=== PATIENT | female | born 1980 | race Caucasian/White ===

== ENCOUNTER → 2016-08-28 | Outpatient (CLI) | payer OTHER ==
[2016-08-28 12:39] VITALS: BP 132/83
== END ==
LOC: MHUC 12:25
PROVIDERS: ATTEND Physician Assistant
DX: J40 Bronchitis, not specified as acute or chronic (principal)
CPT/HCPCS: 99213

== ENCOUNTER 2016-11-07 16:14 | Emergency (ER) | payer OTHER ==
[~2016-11-07] VITALS: Ht 167.6 cm; Wt 92.5 kg
[~2016-11-07 16:14] MED LIST changes: -TBR.3OP51 OS
[2016-11-07] MEDS ORDERED: FLUORESCEIN (FLUOR-I-STRIPS) 1 MG STRIP OS ONE (16:55)
[2016-11-07] MEDS ORDERED: TETRACAINE 0.5% OPHTHALMIC SOLUTION 4 ML BTL OS ONE (16:55)
--- NOTE | 2016-11-07 16:58 | NUR ---
DR WINCHESTER UNABLE TO SEE PT AT THIS TIME D/T PT DOING UDS FOR WORK COMP
[2016-11-07] MEDS ORDERED: TBR.3OP51 OS (17:51)
[2016-11-07 18:11] VITALS: BP 144/87
== END 2016-11-07 18:11 | disposition home or self-care (01) ==
LOC: ED 16:17
DX: Z04.2 Encounter for examination and observation following work accident (principal); X58.XXXA Exposure to other specified factors, initial encounter; Y92.89 Other specified places as the place of occurrence of the external cause; Y99.0 Civilian activity done for income or pay
CPT/HCPCS: 99283

== ENCOUNTER → 2016-11-07 | Outpatient (REF) ==
[~2016-11-07] MED LIST: AC500T PO; ALBU8.5H2 IH; ASPI1TAB59 PO; AZIT250T81 PO; BENZ-13 PO; CODE118S2 PO; CYCL-265; CYCL10TA45 PO; DOXY100C42 PO; HYDR-2013 PO; HYDR-3702 PO; IBUP-15 PO; IBUP-793 PO; LEVO500T16 PO; NAPR-832 PO; NAPR500T8 PO; ONDA4TAB41 PO; ONDAN4ODT PO; PRD50T PO; PRED10TA PO; PRED20TA PO; PRED50TA PO; PROM25TA5 PO; TBR.3OP51 OS; TRAM-25 PO; TRAM100T28 PO; TRM50T PO
== END ==
LOC: EUOP 16:19
PROVIDERS: ATTEND Emergency Medicine
DX: Z02.89 Encounter for other administrative examinations (principal); Z02.83 Encounter for blood-alcohol and blood-drug test

== ENCOUNTER → 2016-11-07 | Outpatient (CLI) | payer OTHER ==
--- NOTE | 2016-11-07 16:15 | Urgent Care T Sheet Gen (E) ---
Intake History of Present Illness Initial Comments Presents with L eye pain, foreign body sensation and light sensitivity. Patient got cleaning solution in her eye approx 2 hours ago. Tried flushing it out with cold water but is still complaining of pain. Allergies: Coded Allergies: Metaxalone (Verified Allergy, 02/15/12) Sulfa (Sulfonamide Antibiotics) (Verified Allergy, 02/15/12) Uncoded Allergies: UNKNOWN PRESCRIBED ANTI-INFLAMMATOR (Allergy, "Under the skin rash", ) Home Meds Active Scripts Albuterol Sulfate (Proair HFA)8.5 Gm Hfa.aer.ad2 Puff IH QID PRN SHORTNESS OF BREATH #1 INHALER Prov:ADALGISA MAJANO 08/28/16 Prednisone 20 Mg Xijxpt50 Mg PO DAILY #10 TAB Take 40mg po x 3 days then take 20mg po x 4 days Prov:ADALGISA MAJANO 08/28/16 Azithromycin (Zithromax Z-Kirit)6 Tab/Pkt [id number] Mg PO SEE INSTRUCTIONS #6 TAB Ref 0 Day One: Take 2 tablets by mouth Days Two-Five: Take 1 tablet by mouth Prov:ADALGISA MAJANO 08/28/16 Prednisone 10 Mg Cmfymw52 Mg PO DAILY Inflammation #12 TAB Ref 0 Take 3 tablets once daily x 2 days 2 tablets once daily x 2 days 1 tablet once daily x 2 days Prov:NAT MILLER 06/23/16 Azithromycin (Zithromax Z-Kirit)6 Tab/Pkt [id number] Mg PO SEE INSTRUCTIONS Infection #6 PKT Ref 0 Day One: Take 2 tablets by mouth Days Two-Five: Take 1 tablet by mouth Prov:NAT MILLER 06/23/16 Tramadol HCl 50 Mg Tablet1-2 Tab PO Q6H PRN PAIN #20 TAB Ref 0 Prov:KAREN COBIAN MD 06/20/16 Ondansetron HCl (Zofran)4 Mg Tablet4 Mg PO QID PRN NAUSEA/VOMITING #15 TAB Ref 0 Prov:ADALGISA MAJANO 04/30/16 Reported Medications Aspirin/Acetaminophen/Caffeine (Migraine Relief Caplet)1 Each Tablet1 Each PO NEEDED 04/15/16 Naproxen Sodium (Midol)220 Mg Mddlht220 Mg PO NEEDED 04/15/16 Acetaminophen (Tylenol Tab)500 Mg Tab2 Tab PO PRN 03/09/13 Ibuprofen (Motrin IB)200 Mg Tablet2-3 Tab PO PRN 03/09/13 Respiratory Constitutional Symptoms: No syptoms reported All Other Systems Reviewed Remaining Systems: All other systems reviewed with negative findings Past Jxowdaq-Gbngox-Ygrprj Hx Patient's Social History Alcohol Use: Denies Use Smoking Status: Former smoker Recent foreign travel: No Surgeries/Hospitalizations Hospitalization/Surgery Hx: hysterectomy, tubal ligation, laminectomy, micro discectomy, gall bladder- Respiratory Respiratory History: Asthma, Chronic Bronchitis Cardiovascular Cardiovascular History: None Neuro/Muscular Comment: Relates Rt leg numb/tingling to Rt hip problem. Reproductive System Sexually Transmitted Diseases: Yes (Herpes) Gastrointestinal GI/Endocrine History: Heartburn, Diarrhea Comment: Bowels not routinely normal since [place] Diabetes Diabetes: No HEENT Impaired Vision: None Hearing Impaired: None Psychosocial Behavior Disorders: Anxiety, Depression Physical Exam Physical Exam General Appearance: WD/WN Departure Urgent Care Impression Impression: Primary Impression: Left eye pain Departure Departed Disposition: To [facility] ED Condition: Stable Referrals: WILLIAM MONTANA MD (PCP) Additional Instructions: I have sent the patient to the ER for appropriate management Patient is arriving via private vehicle. End of report . ADALGISA MAJANO Nov 07, 2016 16:14
== END ==
LOC: MHUC 15:57
PROVIDERS: ATTEND Physician Assistant
DX: H57.12 Ocular pain, left eye (principal)

== ENCOUNTER 2016-11-22 19:45 | Emergency (ER) | payer OTHER ==
[~2016-11-22] VITALS: Ht 167.6 cm; Wt 90.0 kg
--- NOTE | 2016-11-22 20:45 | NUR ---
PT took Advil at 1630.
[2016-11-22] MEDS ORDERED: HYDROmorphone 1 MG/ML (DILAUDID) SYRINGE IM ONE (20:50)
[2016-11-22] MEDS ORDERED: ONDANSETRON 4 MG (ZOFRAN) ORAL DISSOLVE TAB PO ONE (20:50)
[2016-11-22] MEDS ORDERED: TRM50T PO (22:08)
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
[2016-11-23 05:48] VITALS: BP 148/90
== END 2016-11-22 22:50 | disposition home or self-care (01) ==
LOC: ED 19:51
DX: S13.4XXA Sprain of ligaments of cervical spine, initial encounter (principal); V44.5XXA Car driver injured in collision with heavy transport vehicle or bus in traffic accident, initial encounter; Y93.89 Activity, other specified; Y92.481 Parking lot as the place of occurrence of the external cause
CPT/HCPCS: 72125; 96372; 99282; J1170; 99283

== ENCOUNTER → 2016-11-22 | Outpatient (CLI) | payer SELFPAY ==
[~2016-11-22] MED LIST changes: +TBR.3OP51 OS
== END ==
LOC: EMS 15:31
DX: Z53.20 Procedure and treatment not carried out because of patient's decision for unspecified reasons (principal)

== ENCOUNTER 2016-12-15 15:15 | Outpatient (RCR) | payer OTHER ==
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
== END 2016-12-22 09:04 | disposition home or self-care (01) ==
LOC: PT 15:15
PROVIDERS: ATTEND Physician Assistant Surgical
DX: M54.2 Cervicalgia (principal)
CPT/HCPCS: 97032; 97110; 97140; 97161; G0283; 97014